=== PATIENT | male | born 1960 | race African-American/Black ===

== ENCOUNTER 2020-09-05 20:05 | Inpatient (IN) | payer OTHER ==
[~2020-09-05] VITALS: Ht 188 cm; Wt 80.2 kg
[2020-09-05 20:12] VITALS: BP 138/85
[2020-09-05 21:39] LABS: URINE BILIRUBIN NEGATIVE (Negative); URINE BLOOD NEGATIVE (Negative); URINE CLARITY CLEAR; URINE COLOR YELLOW; URINE GLUCOSE-RANDOM* 3+ (Negative); URINE KETONES NEGATIVE (Negative); URINE LEUKOCYTES-REFLEX NEGATIVE (Negative); URINE NITRITE-REFLEX NEGATIVE (Negative); URINE PROTEIN (DIPSTICK) NEGATIVE (Negative); URINE SPECIFIC GRAVITY <= 1.005 (1.005-1.035); URINE UROBILINOGEN 0.2 E.U./dl (0.2-1.0)
[2020-09-05 22:00] LABS: BE(vivo) 0.6 mmol/L (-2 to +3); HCO3 24.5 mmol/L (22.0-26.0); PCO2 VENOUS 37.3 mmHg (41.0-51.0); PO2 VENOUS 72.3 mmHg (35.0-45.0)
[2020-09-05 22:05] LABS: BASOPHILS 0.9 % (0.0-2.0); HEMATOCRIT 40.2 % (42.0-52.0); HEMOGLOBIN 13.6 gm/dL (14.0-18.0); MCH 27.1 pg (26.0-34.0); MCHC 33.7 g/dL (28.0-37.0); MCV 80.4 fL (80.0-100.0); MONOCYTES 9.8 % (1.0-8.0); PLATELET COUNT 230 thou/uL (150-400); POLYS 70.3 % (36.0-66.0); WBC 7.1 thou/uL (4.0-11.0)
[2020-09-05 22:11] LABS: CALCIUM 9.2 mg/dL (8.5-10.1); CREATININE 1.2 mg/dL (0.7-1.3); POTASSIUM 4.6 mmol/L (3.5-5.1)
[2020-09-05 22:14] LABS: ALBUMIN 2.8 g/dL (3.4-5.0); TOTAL BILIRUBIN 0.5 mg/dL (0.2-1.0); TOTAL PROTEIN 7.3 g/dL (6.4-8.2)
[2020-09-05 23:55] LABS: ALBUMIN 2.5 g/dL (3.4-5.0); CALCIUM 8.2 mg/dL (8.5-10.1); PHOSPHORUS 3.9 mg/dL (2.6-4.7); POTASSIUM 4.4 mmol/L (3.5-5.1)
[2020-09-05 23:59] VITALS: BP 131/65
[2020-09-06 00:29] VITALS: BP 131/65
[2020-09-06 00:40] VITALS: BP 142/86
[2020-09-06] MEDS ORDERED: GLUCOPHAGE1000 MG PO (00:58)
[2020-09-06] MEDS ORDERED: GLIPIZIDE 10 MG10 MG PO (00:58)
[2020-09-06] MEDS ORDERED: LIPITOR 20 MG T20 M1 PO (03:16)
[2020-09-06] MEDS ORDERED: ZETIA10 MG PO (03:17)
[2020-09-06] MEDS ORDERED: METOPROLOL SUCC25 M1 PO (03:17)
[2020-09-06 04:35] VITALS: BP 115/68
[2020-09-06 05:00] LABS: HEMATOCRIT 34.1 % (42.0-52.0); HEMOGLOBIN 11.8 gm/dL (14.0-18.0); MCH 26.7 pg (26.0-34.0); MCHC 34.5 g/dL (28.0-37.0); MCV 77.6 fL (80.0-100.0); RBC 4.4 mil/uL (4.50-6.00); RDW 14.3 % (10.5-14.5); WBC 7.2 thou/uL (4.0-11.0)
[2020-09-06 05:29] LABS: CALCIUM 8.1 mg/dL (8.5-10.1); CREATININE 0.7 mg/dL (0.7-1.3); POTASSIUM 3.5 mmol/L (3.5-5.1)
[2020-09-06 05:33] LABS: ALBUMIN 2.4 g/dL (3.4-5.0); PHOSPHORUS 3.5 mg/dL (2.5-4.9)
[2020-09-06 06:36] LABS: CHOLESTEROL 139 mg/dL (<200); HDL CHOLESTEROL 14 mg/dL (>40); LDL CHOLESTEROL 72 mg/dL (<100); SERUM ASSESSMENT Clear; TC:HDL 9.9 Ratio (Not establshd); TRIGLYCERIDE 266 mg/dL (<150); VLDL 53 mg/dL (<40)
--- NOTE | 2020-09-06 16:00 | EKG ---
[address] [address] ELECTROCARDIOGRAM REPORT Name: AGUSTÍN CLEMONS Room #: 359-P [facility] M.R.#: [id number] Admission: 09/05/20 Attend Phys: Kody Bustos MD Discharge: 09/06/20 Date of : 62 Report #: [id number] [facility] ED Test Date: 2020-09-05 Test Time: 20:17:44 Pat Name: AGUSTÍN CLEMONS Department: Room: 359 Gender: M Sider: SAVAGE : 1960 Requested By: Kody Bustos Order Number: [id number] MD: Aiden Aviles Measurements Intervals [place] Rate: 109 P: 72 IA: 125 QRS: -1 QRSD: 84 T: 57 QT: 322 QTc: 434 Interpretive Statements Sinus tachycardia No previous ECG available for comparison Electronically Signed On 09-06-2020 16:00:29 CDT by Aiden Aviles [email or web address] <ELECTRONICALLY SIGNED> By: Aiden Aviles MD, [facility] 09/06/20 1600 16 16 Aiden Aviles MD, FACC /EPI
[2020-09-07 01:06] LABS: GLYCOHEMOGLOBIN (HGB A1C) 14.7 % (4.8-5.6)
== END 2020-09-06 07:30 | disposition left against medical advice (07) | DRG 638 ==
LOC: ER 20:05 → EROBS 22:58 → 3W 22:58
PROVIDERS: Nurse Practitioner Family; Physician Assistant; ADMIT Hospitalist; ATTEND Hospitalist
DX: E11.00 Type 2 diabetes mellitus with hyperosmolarity without nonketotic hyperglycemic-hyperosmolar coma (NKHHC) (principal); E87.1 Hypo-osmolality and hyponatremia; Z53.29 Procedure and treatment not carried out because of patient's decision for other reasons; E78.5 Hyperlipidemia, unspecified; I10 Essential (primary) hypertension; Z88.8 Allergy status to other drugs, medicaments and biological substances; Z87.891 Personal history of nicotine dependence; Z91.14 Patient's other noncompliance with medication regimen; Z79.899 Other long term (current) drug therapy